=== PATIENT | male | born 1975 | race Caucasian/White ===

== ENCOUNTER → 2017-04-24 | Outpatient (CLI) | payer OTHER ==
[2014-03-07 20:15] VITALS: BP 173/88
--- NOTE | 2017-04-24 14:42 | RAD ---
Exam performed: Two views right hip and x-ray lumbar spine. Clinical indication:Lower back pain and right hip pain, no trauma Date of Service: 04/24/17 Comparison: None available 2 view right hip findings: AP and lateral radiographs of the hip reveal the osseous structures to be intact and well aligned. The joint space is well-preserved. Evidence of fracture or dislocation is absent. No soft tissue swelling or foreign body seen. Impression: 1. Radiographically normal right hip. End impression 3 views lumbar spine findings: Normal sagittal alignment is preserved. 5 nonrib-bearing vertebral bodies are identified. Vertebral body heights are maintained. There is narrowing of L5-S1 intervertebral disc base with mild osteophytic spurring. No compression fracture. Mild bilateral facet hypertrophic changes are seen at L4-5 and L5-S1. Nonspecific bowel gas pattern. Impression: 1. Mild spondylotic changes and degenerative disc disease. 2. No acute abnormality seen.
== END | disposition home or self-care (01) ==
LOC: RAD 09:36
PROVIDERS: ATTEND Family Medicine
DX: M51.36 Other intervertebral disc degeneration, lumbar region (principal); M25.551 Pain in right hip
CPT/HCPCS: 72100; 73502

== ENCOUNTER 2021-04-26 20:38 | Emergency (ER) | payer OTHER ==
[~2021-04-26] VITALS: Ht 188 cm; Wt 154.6 kg
[2021-04-26] MEDS ORDERED: IV NORMAL SALINE 1000ML BAG 1,000 ML IV ONE (21:30)
[2021-04-26 21:48] LABS: BASO # 0.1 x10^3/uL (0.0-0.2); BASO % 1 % (0-3); EOS # 0.1 x10^3/uL (0.0-0.7); EOS % 1 % (0-3); HEMATOCRIT 41.3 % (39.0-53.0); HEMOGLOBIN 14.3 g/dL (13.0-17.5); LYMPH # 1.7 x10^3/uL (1.0-4.8); LYMPH % 18 % (24-48); MEAN CORPUSCULAR HEMOGLOBIN 31 pg (25-35); MEAN CORPUSCULAR HGB CONC 35 g/dL (31-37); MEAN CORPUSCULAR VOLUME 90 fL (79-100); MONO # 0.8 x10^3/uL (0.0-1.1); MONO % 8 % (0-9); NEUT # 6.8 x10^3/uL (1.8-7.7); NEUT % 72 % (31-73); PLATELET COUNT 194 x10^3/uL (140-400); RED BLOOD COUNT 4.58 x10^6/uL (4.30-5.70); RED CELL DISTRIBUTION WIDTH 13.8 % (11.5-14.5); WHITE BLOOD COUNT 9.5 x10^3/uL (4.0-11.0)
[2021-04-26 21:59] LABS: CALCIUM 8.8 mg/dL (8.5-10.1); CREATININE 1.2 mg/dL (0.7-1.3); GFR 64.9; POTASSIUM 3.7 mmol/L (3.5-5.1)
--- NOTE | 2021-04-26 22:04 | PHYS DOC ---
Past Medical History Past Medical History: High Cholesterol, Hypertension Past Surgical History: Other Additional Past Surgical Histo: L ARM Smoking Status: Never Smoker Alcohol Use: Heavy Drug Use: None General Adult EDM: Chief Complaint: TREMORS HPI: HPI: Patient is a 46-year-old male presents with report of sensation of feeling "shaky "while patient was home watching TV at approximately 2000. Patient reports he felt weird and slightly dizzy. Denies any loss of consciousness. Denies chest pain or palpitations. Denies shortness of air. Denies fever chills. Denies known exposure to COVID-19. Patient reports concern for dehydration as he has been outside in the heat. Review of Systems: Review of Systems: Constitutional: Denies fever or chills Eyes: Denies redness or eye pain HENT: Denies nasal congestion or sore throat Respiratory: Denies cough or shortness of breath Cardiovascular: Denies chest pain or palpitations GI: Denies abdominal pain, nausea, or vomiting : Denies dysuria or hematuria Musculoskeletal: Denies back pain or joint pain Integument: Denies rash or skin lesions Neurologic: Denies headache, focal weakness or sensory changes; patient reports feeling shaky in his upper extremities and dizziness Complete systems were reviewed and found to be within normal limits, except as documented in this note. Heart Score: C/O Chest Pain: N/A Current Medications: Current Medications Medications (Trade) Dose Ordered Sig/[place] Start Time Stop Time Status Last Admin Dose Admin Sodium Chloride 1,000 ml @ 1,000 mls/hr 1X ONCE 04/26/21 21:30 04/26/21 22:29 04/26/21 21:38 1,000 MLS/HR Allergies: Allergies: Allergies Coded Allergies Type Severity Reaction Last Updated Verified No Known Drug Allergies 03/07/14 No Physical Exam: PE: Constitutional: Well developed, well nourished, no acute distress, non-toxic appearance HENT: Normocephalic, atraumatic Eyes: PERRL, EOMI, conjunctiva normal, no discharge, no nystagmus Neck: Normal range of motion, no tenderness, supple Lungs & Thorax: No respiratory distress, equal chest rise and fall Abdomen: Soft, no tenderness Skin: Warm, dry, no erythema, no rash Back: No tenderness, no CVA tenderness Extremities: No tenderness, ROM intact, no edema Neurologic: Alert and oriented X 3, normal motor function, normal sensory function, no focal deficits noted Psychologic: Affect normal, judgment normal Current Patient Data: Labs: Laboratory Tests Test 04/26/21 21:37 White Blood Count 9.5 x10^3/uL (4.0-11.0) Red Blood Count 4.58 x10^6/uL (4.30-5.70) Hemoglobin 14.3 g/dL (13.0-17.5) Hematocrit 41.3 % (39.0-53.0) Mean Corpuscular Volume 90 fL (79-100) Mean Corpuscular Hemoglobin 31 pg (25-35) Mean Corpuscular Hemoglobin Concent 35 g/dL (31-37) Red Cell Distribution Width 13.8 % (11.5-14.5) Platelet Count 194 x10^3/uL (140-400) Neutrophils (%) (Auto) 72 % (31-73) Lymphocytes (%) (Auto) 18 % (24-48) L Monocytes (%) (Auto) 8 % (0-9) Eosinophils (%) (Auto) 1 % (0-3) Basophils (%) (Auto) 1 % (0-3) Neutrophils # (Auto) 6.8 x10^3/uL (1.8-7.7) Lymphocytes # (Auto) 1.7 x10^3/uL (1.0-4.8) Monocytes # (Auto) 0.8 x10^3/uL (0.0-1.1) Eosinophils # (Auto) 0.1 x10^3/uL (0.0-0.7) Basophils # (Auto) 0.1 x10^3/uL (0.0-0.2) Laboratory Tests 04/26/21 21:37 Vital Signs: Vital Signs Date Time Temp Pulse Resp B/P (MAP) Pulse Ox O2 Delivery O2 Flow Rate FiO2 04/26/21 21:10 97.4 118 18 178/79 (103) 98 Room Air 97.4 EKG: EKG: @2129 Sinus tachycardia at 116bpm, NO ST elevation, QRS 92ms, QT/QTc 304/428ms Radiology/Procedures: Radiology/Procedures: [] Course & Med Decision Making: Course & Med Decision Making Pertinent Lab studies reviewed. (See chart for details) Patient reports with HPI of feeling shaky and having some upper extremity tremors earlier this evening. Patient reports resolution upon arrival to the ER. Patient does appear neurologically intact. Denies any increased life stressors or concern for an anxiety attack. Patient is tachycardic upon arrival. EKG stable. Labs obtained and posted to chart. CPK slightly elevated. IV fluid hydration given. Patient does report some concern for dehydration as he has been outside in the heat. Patient's heart rate and blood pressure significantly improved during ED stay. Patient denies return of symptoms during ED stay. Patient stable for discharge with outpatient follow-up with PCP. Discussed findings and plan with patient, who acknowledges understanding and agreement. Neo Disclaimer: Neo Disclaimer: This electronic medical record was generated, in whole or in part, using a voice recognition dictation system. Departure Departure Impression: Primary Impression: Occasional tremors Additional Impression: Dehydration Disposition: 01 HOME / SELF CARE / HOMELESS Condition: STABLE Referrals: UNKNOWN PCP NAME (PCP) Patient Instructions: Dehydration, Adult, [id number], Tremor Additional Instructions: Increase fluid hydration. Follow closely with your doctor for further evaluation. MANINDER PINA DO Apr 26, 2021 22:04
[2021-04-26 22:05] LABS: ALBUMIN 3.4 g/dL (3.4-5.0); ALBUMIN/GLOBULIN RATIO 0.9 (1.0-1.7); MAGNESIUM 2.2 mg/dL (1.8-2.4); TOTAL BILIRUBIN 0.4 mg/dL (0.2-1.0); TOTAL PROTEIN 7.1 g/dL (6.4-8.2)
[2021-04-26 23:28] VITALS: BP 130/87
--- NOTE | 2021-04-30 11:46 | EKG ---
[facility] [address] [place] [id number] Test Date: 2021-04-26 Test Time: 21:29:41 Pat Name: LARRY SOUZA Department: Room: Gender: M [employer]: : 1975 Requested By: MANINDER PINA Order Number: [id number] Reading MD: Measurements Intervals [place] [address] [place] Rate: 116 P: 224 [place]: 112 QRS: -3 QRSD: 92 T: 43 QT: 304 QTc: 428 Interpretive Statements SINUS TACHYCARDIA LEFTWARD AXIS OTHERWISE NORMAL ECG RI6.02 No previous ECG available for comparison
== END 2021-04-26 23:22 | disposition home or self-care (01) ==
LOC: ER 20:38
DX: E86.0 Dehydration (principal); R25.1 Tremor, unspecified; E78.00 Pure hypercholesterolemia, unspecified; I10 Essential (primary) hypertension; F10.20 Alcohol dependence, uncomplicated; Y90.9 Presence of alcohol in blood, level not specified
CPT/HCPCS: 36415; 80053; 82553; 83735; 84443; 84484; 85025; 93005; 96360; 96361; 99285; J7030